=== PATIENT | female | born 1985 | race Caucasian/White ===

== ENCOUNTER → 2020-05-27 14:19 | Outpatient (REF) | payer OTHER, SELFPAY | LOC: ANHLAB 14:19 | PROVIDERS: PCP Nurse Practitioner Adult Health; Visit Provider Nurse Practitioner | DX: L72.11 Pilar cyst (principal) | CPT/HCPCS: 88304; 88305 ==

== ENCOUNTER 2024-06-16 14:03 | Outpatient (RCR) | payer OTHER, SELFPAY ==
[2024-06-16 14:53] VITALS: BP 130/72; PULSE 98
== END 2024-09-14 23:59 | disposition home or self-care (01) ==
LOC: ANHOBOP 14:03
PROVIDERS: Visit Provider Student in an Organized Health Care Education/Training Program
DX: O36.8130 Decreased fetal movements, third trimester, not applicable or unspecified (principal); Z3A.32 32 weeks gestation of pregnancy
CPT/HCPCS: 59025